=== PATIENT | female | born 1980 | race African-American/Black ===

== ENCOUNTER 2018-03-13 15:24 | Emergency (ER) | payer MEDICAID ==
--- NOTE | 2018-03-13 16:07 | ED Physician Chart ---
ED Chief Complaint/HPI - Patient Information Date Seen:: 03/13/18 Time Seen:: 16:05 Chief Complaint:: Left ankle pain History of Present Illness:: 37 yo female had left ankle pain due to sprain of ankle at vulgas position 3 hours ago. Painful ROM with swelling Allergies:: Allergies Allergy/AdvReac Type Severity Reaction Status Date / Time ceftriaxone [From Rocephin] Allergy Verified 11/21/16 15:49 nitrofurantoin Allergy Verified 11/21/16 15:49 [From Macrobid] prochlorperazine Allergy Verified 03/13/18 15:43 [From Compazine] Sulfa (Sulfonamide Allergy Verified 11/21/16 15:49 Antibiotics) Vitals:: Vital Signs - 8 hr 03/13/18 15:47 Temp 98.3 F HR 70 RR 16 BP 151/79 O2 Sat % 100 ED Past Medical History - Past Medical History Past Medical History: No significant medical hx Social History: Non Smoker, No Alcohol, No Drug Use Surgical History: Appendectomy, (x1 ), other (tubal ligation) Family Medical History - Family Member Father Ethnicity: Non- Living Status: Hx Family Cancer: No Hx Family Coronary Artery Disease: Yes Hx Family Congestive Heart Failure: No Hx Family Hypertension: No Hx Family Stroke: Yes Hx Family Diabetes: No Hx Family Seizures: No Hx Family Dementia: No Hx Family AIDS: No Hx Family HIV: No Hx Family COPD: No Hx Family Hepatitis: No Hx Family Psychiatric Problems: No Hx Family Tuberculosis: No Mother History Unknown: Yes Ethnicity: Unknown Living Status: Still Living Hx Family Hypertension: Yes Hx Family Diabetes: Yes ED Septic Shock - <6hrs of presentation: Vital Signs: Vital Signs - 8 hr 03/13/18 15:47 Temp 98.3 F HR 70 RR 16 BP 151/79 O2 Sat % 100
--- NOTE | 2018-03-14 09:08 | Diagnostic Imaging Report ---
Left ankle (3 views) HISTORY: Pain No focal lesions. No fractures. Joint spaces appear normal. IMPRESSION: No acute abnormalities. In the presence of recent trauma and persistent symptoms, a repeat radiograph in 5-7 days may be helpful for detection of a subtle or occult fracture.
--- NOTE | 2018-03-14 09:11 | Diagnostic Imaging Report ---
Left foot (3 views) HISTORY: Pain, trauma No acute bony abnormalities. No fractures. Joint spaces appear normal. IMPRESSION: 1. No acute abnormalities In the presence of recent trauma and persistent symptoms, a repeat radiograph in 5-7 days may be helpful for detection of a subtle or occult fracture.
== END 2018-03-13 17:44 | disposition home or self-care (01) ==
LOC: ER 15:24
DX: S93.402A Sprain of unspecified ligament of left ankle, initial encounter (principal); Z88.2 Allergy status to sulfonamides; Z88.8 Allergy status to other drugs, medicaments and biological substances; X58.XXXA Exposure to other specified factors, initial encounter; Y93.89 Activity, other specified; Y92.89 Other specified places as the place of occurrence of the external cause; Y99.8 Other external cause status
CPT/HCPCS: 99284; 96372; 73610; 73630; J1885; Z7502

== ENCOUNTER 2018-11-09 08:22 | Emergency (ER) | payer MEDICAID ==
--- NOTE | 2018-11-13 16:16 | ER Physician Documentation ---
DATE OF SERVICE: 11/09/2018 INCOMPLETE DICTATION CHIEF COMPLAINT: Sore throat. HISTORY OF PRESENT ILLNESS: A 38-year-old female who presents with complaint of sore throat for 3 days. Actually, she is a smoker and says that she has had yellow sputum on and off. PAST MEDICAL HISTORY: Unremarkable. PAST SURGICAL HISTORY: Unremarkable. REVIEW OF SYSTEMS: Positive for sore throat and yellow sputum production. Negative for fevers, chills. DICTATIONS ENDS ABRUPTLY. JOB# [id number]
--- NOTE | 2018-11-13 16:17 | ER Physician Documentation ---
DATE OF SERVICE: 11/09/2018 INCOMPLETE DICTATION CHIEF COMPLAINT: Sore throat and yellow sputum production. HISTORY OF PRESENT ILLNESS: A 38-year-old smoker, presents with complain of sore throat and yellow sputum production. PAST MEDICAL HISTORY: Unremarkable. SOCIAL HISTORY: Unremarkable. REVIEW OF SYSTEMS: Positive for sore throat and yellow sputum production. Review of systems is negative for fevers, chills, nausea, vomiting, diarrhea and constipation. PHYSICAL EXAMINATION: GENERAL: The patient is an overweight female, in no apparent distress. LUNGS: Clear to auscultation bilaterally. CARDIOVASCULAR: Regular rate and rhythm. No lymphadenopathy present. HEENT: Her throat is slightly injected with a little bit of exudate present. DICTATION END ABRUPTLY HERE. JOB# [id number]
--- NOTE | 2018-11-13 16:21 | ER Physician Documentation ---
DATE OF SERVICE: 11/09/2018 CHIEF COMPLAINT: Sore throat and yellow sputum production. HISTORY OF PRESENT ILLNESS: This is a 38-year-old smoker, presents with a sore throat and yellow sputum production. PAST MEDICAL HISTORY: Unremarkable. PAST SURGICAL HISTORY: Unremarkable. REVIEW OF SYSTEMS: Positive for sore throat and yellow sputum production. Review of systems is negative for fevers, chills, nausea, vomiting, diarrhea, or constipation. PHYSICAL EXAMINATION: GENERAL: This is not overweight female, in no apparent distress. LUNGS: Clear to auscultation bilaterally. CARDIOVASCULAR: Regular rate and rhythm. No lymphadenopathy present. HEENT: Oropharynx is injected with plus/minus exudate. No evidence of abscess present. Airway patent. Moistened mucosa. LYMPHADENOPATHY: slightly swollen in the cervical area. NEURO: no focal deficits. SKIN: no rash. NECK: full range of motion. No s/s of meningitis. ASSESSMENT/PLAN: pharyngitis and bronchitis. Patient was discharged with oral antibiotics. Rest and fluids. Follow up with primary care physician as needed. JOB# [id number] MTDD
== END 2018-11-09 09:25 | disposition home or self-care (01) ==
LOC: ER 08:22
DX: J40 Bronchitis, not specified as acute or chronic (principal); J02.9 Acute pharyngitis, unspecified
CPT/HCPCS: Z7502